=== PATIENT | female | born 1965 | race Caucasian/White ===

== ENCOUNTER 2025-05-25 08:05 | Emergency (ER) | payer BC, SELFPAY ==
--- OUTSIDE RECORDS SUMMARY | 2025-01-27 04:50 | XMS_ITS ---
Author Organization [facility] Address [address] [facility] [address] [place], [place] [phone] Care Team Providers Care Web Press Operator Name Role Phone HAYDEE RIOS Unavailable [phone] Hakan Provider Unknown Unavailable Unavai lable Allergies No Known Allergies REASON FOR VISIT *Tendonitis check Social History Social History Additional Details Category Social Info Options Details Migrated Social History Migrated Social History Smoking Status : Never smoked , Alcohol intake : , History of tobacco use : Vital Signs Height 64.00 in 01/27/2025 Weight 200 lbs 01/27/2025 BMI 34.33 kg/m2 01/27/2025 Height-cm 162.56 cm 01/27/2025 Weight-kg 90.72 kg 01/27/2025 Encounters Encounter Location Date Provider Diagnosis [facility] [place] [address] [facility] [address] [place], [place] [id number] 01/27/2025 HAYDEE RIOS Posterior tibial tendinitis of right lower extremity M76.821 ; Posterior tibial tendinitis of left lower extremity M76.822 ; Arthritis of foot, left M19.072 ; Other enthesopathy of left foot and ankle M77.52 ; Metatarsalgia of left foot M77.42 ; Pain in right foot M79.671 and Left foot pain M79.672 Assessments Encounter Date Diagnosis (ICD Code) Assessment Notes Treatment Notes Treatment Clinical Notes Section Notes 01/27/2025 Posterior tibial tendinitis of right lower extremity (ICD-10 - M76.821) 01/27/2025 Posterior tibial tendinitis of left lower extremity (ICD-10 - M76.822) 01/27/2025 Arthritis of foot, left (ICD-10 - M19.072) Discussed conservative care consisting of padding, wider shoes, anti-inflammator ies, and orthotics. Discussed surgical treatment options and answered all questions about the intra-operative and post-operative treatment course. 01/27/2025 Other enthesopathy of left foot and ankle (ICD-10 - M77.52) The patient was scanned for custom orthotics while held in subtalar joint neutral position. Xrays were obtained and reviewed. 01/27/2025 Metatarsalgia of left foot (ICD-10 - M77.42) 01/27/2025 Pain in right foot (ICD-10 - M79.671) 01/27/2025 Left foot pain (ICD-10 - M79.672) Patient was instructed to try an OTC topical pain reliever/anti-in flammatory such as Voltaren Gel, Aspercreme with Lidocaine, or Biofreeze etc over the affected areas. Spot test on hand or somewhere visible prior to starting to watch for possible rash/allergic reaction. Continue ibuprofen as needed. Patient refused steroid shot or Rx for pain today Plan Of Treatment Treatment Notes Assessment Notes Arthritis of foot, left Discussed conser vative care consisting of padding, wider shoes, anti-inflammatories, and orthotics. Discussed surgical treatment options and answered all questions about the intra-operative and post-operative treatment course. Other enthesopathy of left foot and ankl e The patient was scanned for custom orthotics while held in subtalar joint neutral position. Xrays were obtained and reviewed. Left foot pain Patient was instructed to try an OTC topical pain reliever/anti-inflammatory such as Voltaren Gel, Aspercreme with Lidocaine, or Biofreeze etc over the affected areas. Spot test on hand or somewhere visible prior to starting to watch for possible rash/allergic reaction. Continue ibuprofen as needed. 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 Patient complains of aching pain to bilateral feet. Duration of problem is 2 years. Patient states that she received x-rays from Dr. Alvarado in 2022 and no fracture was detected. Received injection, but did not improve pain. Patient states that pain started in the left foot and then it transitioned to both. , MA: KB Examination Category Sub-Category Detail Notes Category Not es X-Ray LEFT FOOT 3 views of foot: There is no evidence of fracture or dislocation. , Narrowing of the joint space and dorsal spurring noted at the first metatarsal phalangeal joint., X-rays show arthritic changes at the midfoot., X-rays reveal good correction of the deformities and position of the osteotomy left 2nd metatarsal. All hardware is in good position. RIGHT FOOT 3 views of foot: The re is no evidence of fracture or dislocation. , Narrowing of the joint space and dorsal spurring noted at the first metatarsal phalangeal joint. X-rays show arthritic changes at the midfoot Physical Examination Gen: The patient is awake, alert, well developed, well groomed and well nourished. They are in no apparent distress. Vasc: Dorsalis pedis and p osterior tibial pulses 2+ bilaterally. No edema noted. Capillary fill time < 3 seconds to all digits. Neuro: Grossly intact to li ght touch bilateral., Negative Tinel's sign bilateral Musc: Foot structure is hy permobile bilateral. Muscle strength is 5/5 to all joints bilaterally. Pain on palpation of subtalar joint, posterior left > right Pain along posterior tibial tendon left > right on palpation with mild nonpitting edema. Pain along metatarsal heads diffusely bilateral with callus sub 3rd mtpj bilateral flexible contractures of digits 2-5 bilateral with cicatrix over left 2nd MTPJ Derm: Skin is warm and dry , with no rashes, good skin turgor and normal hair distribution. Progress Notes * AMY MOB[birth year]DOB:[birth year] (59 yo F)Acc No.[id number]:01/27/2025 Patient: Adrian AWAD AMY Provider: Arabella ROIS :1965 A ge:59 Y S ex:Female Date:01/27/2025 Address:[address] [place] [address] Subjective: * Chief Complaints: * * Tendonitis check * HPI: H PI: New Complaint E stablished patient presents with a new complaint. Patient complains of aching pain to bilateral feet. Duration of problem is 2 years. Patient states that she received x-rays from Dr. Alvarado in 2022 and no fracture was detected. Received injection, but did not improve pain. Patient states that pain started in the left foot and then it transitioned to both. , MA: DOLORES. * ROS: G eneral / Constitutional: Patient denies c hills, fever. E ndocrine: Patient denies e xcessive thirst, frequent urination. ? C ardiovascular: Patient denies s hortness of breath, chest pain. S kin: Patient denies m ole changes. * Medical History: Denies Past Medical History No Medical History Documented Medical History Verified * Surgical History: Denies Past Surgical History. * Hospitalization/Major Diagno stic Procedure: Denies Past Hospitalization. Hospitalization Verified. * Family History: F ather: PRN - Father: :: Cancer,,known absent . M other: PRN - Mother: :: Arthritis,,known absent , :: Diabetes,,known absent . B rother: SIB - Brother: . S ister: SIB - Sister: .?Family History Verified.. * Social History: M igrated Social History: M igrated Social History: Smoking Status : Never smoked , Alcohol intake : , History of tobacco use :. Social History Verified. * Medications: N one * Allergies: N .K.D.A.yesAllergies Verified. Objective: * Vitals: S hoe Size: 8.5, Wt:200lbs, Wt-k.72 kg, Ht: 64.00 in, Ht-cm: 162.56 cm, BMI:34.33Index, Body Surface Area: 2.02. * Examination: P hysical Examination: Gen: T he patient is awake, alert, well developed, well groomed and well nourished. They are in no apparent distress. . Musc: F oot structure is hypermobile bilateral. Muscle strength is 5/5 to all joints bilaterally. Pain on palpation of subtalar joint, posterior l eft > right Pain along posterior tibial tendon left > right on palpation with mild nonpitting edema. Pain along metatarsal heads diffusely bilateral with callus sub 3rd mtpj bilateral flexible contractures of digits 2-5 bilateral with cicatrix over left 2nd MTPJ . Derm: S kin is warm and dry, with no rashes, good skin turgor and normal hair distribution. . Neuro: G rossly intact to light touch bilateral., Negative Tinel's sign bilateral. Vasc: D orsalis pedis and posterior tibial pulses 2+ bilaterally. No edema noted. Capillary fill time < 3 seconds to all digits. . X -Ray: LEFT FOOT 3 views of foot: There is no evidence of fracture or dislocation. , Narrowing of the joint space and dorsal spurring noted at the first metatarsal phalangeal joint., X-rays show arthritic changes at the midfoot., X-rays reveal good correction of the deformities and position of the osteotomy left 2nd metatarsal. All hardware is in good position..? RIGHT FOOT 3 views of foot: There is no evidence of fracture or dislocation. , N arrowing of the joint space and dorsal spurring noted at the first metatarsal phalangeal joint.?X-rays show arthritic changes at the midfoot. Assessment: * Assessment: 1. P osterior tibial tendinitis of right lower extremity - M76.821 (Primary) 2 . P osterior tibial tendinitis of left lower extremity - M76.822 3 . A rthritis of foot, left - M19.072 4 . O ther enthesopathy of left foot and ankle - M77.52 5 . M etatarsalgia of left foot - M77.42 6 . P ain in right foot - M79.671 7 . L eft foot pain - M79.672 Plan: * Treatment: 2. O ther enthesopathy of left foot and ankle Notes: The patient was scanned for custom orthotics while held in subtalar joint neutral position. Xrays were obtained and reviewed. 3. L eft foot pain Notes: Patient was instructed to try an OTC topical pain reliever/anti-inflammatory such as Voltaren Gel, Aspercreme with Lidocaine, or Biofreeze etc over the affected areas. Spot test on hand or somewhere visible prior to starting to watch for possible rash/allergic reaction. Continue ibuprofen as needed. 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 * Procedure Codes: 29899 X-RAY EXAM [place] FO[place]. Modifiers: [place] [address] X-RAY EXAM OF FOOT. Modifiers: LT L3020 FT INSRT REMV MOLD LNGTUDNL SUPP EA. Modifiers: RT, GA L3020 FT INSRT REMV MOLD LNGTUDNL SUPP EA. Modifiers: LT, GA * Electronic signature of JOSE ANGEL RIOS DPM on 05/25/2025 at 08:09 AM CFA Sign off status: Pending * Provider: Arabella RIOS Date: 0 01/27/2025 Generated for Teri Sterling/Blas on: 07/25/2024 08:09 AM CFA
--- OUTSIDE RECORDS SUMMARY | 2025-02-18 09:40 | XMS_ITS ---
Author Organization [facility] Address [address] [facility] [address] [place], [place] [id number] Care Team Providers Care Machine Puller And Laster Name Role Phone HAYDEE RIOS Unavailable [phone] Hakan Provider Unknown Unavailable Unavai lable Allergies No Known Allergies REASON FOR VISIT *Orthotic pick-up Social History Social History Additional Details Category Social Info Options Details Migrated Social History Migrated Social History Smoking Status : Never smoked , Alcohol intake : , History of tobacco use : Vital Signs Height 64.00 in 02/18/2025 Weight 200 lbs 02/18/2025 BMI 34.33 kg/m2 02/18/2025 Height-cm 162.56 cm 02/18/2025 Weight-kg 90.72 kg 02/18/2025 Encounters Encounter Location Date Provider Diagnosis [facility] [place] [address] [facility] [address] [place], [place] [phone] 02/18/2025 HAYDEE RIOS Plantar fasciitis M72.2 ; Posterior tibial tendinitis of right lower extremity M76.821 ; Posterior tibial tendinitis of left lower extremity M76.822 ; Left foot pain M79.672 and Pain in right foot M79.671 Assessments Encounter Date Diagnosis (ICD Code) Assessment Notes Treatment Notes Treatment Clinical Notes Section Notes 02/18/2025 Plantar fasciitis (ICD-10 - M72.2) 02/18/2025 Posterior tibial tendinitis of right lower extremity (ICD-10 - M76.821) 02/18/2025 Posterior tibial tendinitis of left lower extremity (ICD-10 - M76.822) 02/18/2025 Left foot pain (ICD-10 - M79.672) 02/18/2025 Pain in right foot (ICD-10 - M79.671) Plan Of Treatment No Information History and Physical Notes * HPI (History of Present Illness) Category Sub-Category Detail Notes Category Not es HPI Follow Up Visit 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 , MA: MIREILLE. * Medical History: No Medical History Documented Medical History Verified * Surgical History: No Surgical History documented. Surgical History verified. * Hospitalization/Major Diagno stic Procedure: No Hospitalization Documented. Hospitalization Verified. * Family History: F ather: [...] Allergies: N .K.D.A.yesAllergies Verified. Objective: * Vitals: W t:200lbs, Wt-k.72 kg, Ht: 64.00 in, Ht-cm: 162.56 cm, BMI:34.33Index, Body Surface Area: 2.02. Assessment: * Assessment: 1. P lantar fasciitis - M72.2 (Primary) 2 . P osterior tibial tendinitis of right lower extremity - M76.821 3 . P osterior tibial tendinitis of left lower extremity - M76.822 4 . L eft foot pain - M79.672 5 . P ain in right foot - M79.671 Plan: * Immunizations: Immunization record has been reviewed and updated. Billing Information: * Visit Code: 03251 Office Visit, Est Pt., Level 3. * Procedure Codes: * Electronic signature of JOSE ANGEL RIOS DPM on 05/25/2025 at 08:09 AM MANAGEMENT NURSE RN Sign off status: Pending * Provider: Arabella RIOS Date: 0 02/18/2025 Generated for Teri ortega/Cory/Austinsmitting on: 07/25/2024 08:09 AM MANAGEMENT NURSE RN
--- OUTSIDE RECORDS SUMMARY | 2025-04-15 10:10 | XMS_ITS ---
Author Organization [facility] Address [address] [place], [place] [address] Care Team Providers Care Skills Auditor Name Role Phone BLANCAHAYDEE Unavailable [phone] Hakan Provider Unknown Unavailable DAMIAN Gomez Unavailable [phone] Allergies No Known Allergies REASON FOR VISIT injection Social History Social History Additional Details Category Social Info Options Details Migrated Social History Migrated Social History Smoking Status : Never smoked , Alcohol intake : , History of tobacco use : Vital Signs Height 64.00 in 04/15/2025 Weight 200 lbs 04/15/2025 BMI 34.33 kg/m2 04/15/2025 Height-cm 162.56 cm 04/15/2025 Weight-kg 90.72 kg 04/15/2025 Encounters Encounter Location Date Provider Diagnosis [facility] [address] [place], [place] [phone] 04/15/2025 DAMIAN ADORNO 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 ; Primary osteoarthritis, right ankle and foot M19.071 and Pain in right foot M79.671 Assessments Encounter Date Diagnosis (ICD Code) Assessment Notes Treatment Notes Treatment Clinical Notes Section Notes 04/15/2025 Sinus tarsi syndrome of right ankle (ICD-10 - M25.571) 04/15/2025 Primary osteoarthritis , right ankle and foot (ICD-10 - M19.071) 04/15/2025 Pain in right foot (ICD-10 - M79.671) 04/15/2025 Other Following skin prep, a total of 3 ccs of a 1-1-1 mix of 0.5% marcaine plain, Kenalog, and dexamethasone sodium phosphate was injected into the patients right sinus tarsi A trilok ankle brace was dispensed for the pateint's right and the patient was instructed on it's use. Plan Of Treatment Treatment Notes Assessment Notes Other Following skin prep, a total of 3 ccs of a 1-1-1 mix of 0.5% marcaine plain, Kenalog, and dexamethasone sodium phosphate was injected into the patients right sinus tarsi A trilok ankle brace was dispensed for the pateint's right and the patient was instructed on it's use. History and Physical Notes * HPI (History of Present Illness) Category Sub-Category Detail Notes Category Not es HPI Follow Up Visit Patient presents for follow-up visit for injections in both feet. Patient states the last injections didn't work. Patient states she has had orthotics for two months, and they are not helping. Patient states their problem is, unchanged., MA: da Examination Category Sub-Category Detail Notes Category Not es Constitutional Constitutional The patient is a wake, alert, well developed, well groomed and well nourished. Dermatologic Skin findings: Skin is warm, dr y, supple with no breaks in the skin. Nail pathology: Nails 1-5 bilateral are normal in appearance and thickness. No discoloration. Ulcer: There is no evidence of ulceration noted at this time Hyperkeratotic Skin Lesion There is no e vidence of hyperkeratosis Musculoskeletal Muscle Strength Muscle strength is 5/5 in regards to dorsiflexion, plantarflexion, inversion, and eversion in bilateral lower extremities. Pain on palpation lateral portal of th e right sinus tarsi. Foot Structure The foot structure i s noted to be normal bilaterally Gait There is normal gait noted Neurologic Muscle power: 5/5 bilaterally Gross sensation Gross sensation is i ntact to light touch. Vascular Dorsalis pedis pulse: 2/4 bilateral Posterior tibial pulse: 2/4 bilaterally Capillary refill: less than 3 seconds bilaterally Temperature gradient: within normal limi ts Progress Notes * AMY MOB[birth year]DOB:[birth year] (59 yo F)Acc No.[id number]:04/15/2025 Patient: MARC SALASRICIA Provider: Rai Adorno DPM :1965 A ge:59 Y S ex:Female Date:04/15/2025 Address:[address] [place] [address] Subjective: * Chief Complaints: * I njection * HPI: H PI: Follow Up Visit P caden presents for follow-up visit for injections in both feet. Patient states the last injections didn't work. Patient states she has had orthotics for two months, and they are not helping. Patient states their problem is, unchanged., MA: eileen. * Medical History: No Medical History Documented [...] : , History of tobacco use :. S ocial History Verified. * Medications: N one * Allergies: N .K.D.A.yesAllergies Verified. Objective: * Vitals: S hoe Size: 8.5, Wt:200lbs, Wt-k.72 kg, Ht: 64.00 in, Ht-cm: 162.56 cm, BMI:34.33Index, Body Surface Area: 2.02. * Examination: C onstitutional: Constitutional T he patient is awake, alert, well developed, well groomed and well nourished. . D ermatologic: Skin findings: S kin is warm, dry, supple with no breaks in the skin. . Nail pathology: N ails 1-5 bilateral are normal in appearance and thickness. No discoloration. . Ulcer: T here is no evidence of ulceration noted at this time . Hyperkeratotic Skin Lesion T here is no evidence of hyperkeratosis . M usculoskeletal: Muscle Strength M uscle strength is 5/5 in regards to dorsiflexion, plantarflexion, inversion, and eversion in bilateral lower extremities. . Foot Structure T he foot structure is noted to be normal bilaterally . Pain on palpation l ateral portal of the right sinus tarsi. . Gait T here is normal gait noted . N eurologic: Muscle power: 5 /5 bilaterally . Gross sensation G ross sensation is intact to light touch. . V ascular: Dorsalis pedis pulse: 2 /4 bilateral . Posterior tibial pulse: 2 /4 bilaterally . Capillary refill: l ess than 3 seconds bilaterally . Temperature gradient: w ithin normal limits . ? Assessment: * Assessment: 1. S inus tarsi syndrome of right ankle - M25.571 (Primary) 2 . P rimary osteoarthritis, right ankle and foot - M19.071 3 . P ain in right foot - M79.671? Plan: * Treatment: * Procedure Codes: 2 0600 DRAIN/INJECT, JOINT/BURSA, Modifiers: RT L1902 AFO SHAHRIAR GAUNTLT PREFAB W/FIT&ADJ, Modifiers: RT , GA Billing Information: * Visit Code: 54034 Office Visit, Est Pt., Level 3. Modifiers: 25 * Procedure Codes: 66584 DRAIN/INJECT, JOINT/BURSA. Modifiers: RT L1902 AFO ANK GAUNTLT PREFAB W/FIT&ADJ. Modifiers: RT, GA * Electronic signature of DAMIAN ADORNO DPM on 05/25/2025 at 08:09 AM SCROLL SAW OPERATOR Sign off status: Pending * Provider: Rai Adorno DPM Date: 0 04/15/2025 Generated for Teri ortega/Cory/eTransmitting on: 07/25/2024 08:09 AM SCROLL SAW OPERATOR
--- OUTSIDE RECORDS SUMMARY | 2025-05-06 09:40 | XMS_ITS ---
Author Organization [facility] Address [address] [place], [place] [address] Care Team Providers Care Oncology Pharmacist Name Role Phone BLANCAHAYDEE Unavailable [phone] Harvinder Mcclendon Unknown Unavailable DAMIAN Gomez Unavailable [phone] REASON FOR VISIT *Trilok follow-up Encounters Encounter Location Date Provider Diagnosis [facility] [address] [place], [place] [phone] 05/06/2025 DAMIAN ADORNO Plan Of Treatment No Information Progress Notes * ITZ AMYDOB:[birth year] (59 yo F)Acc No.[id number]:05/06/2025 Patient: AMY SALAS Provider: Rai Adorno DPM :1965 A ge:59 Y S ex:Female Date:05/06/2025 Address:[address] [place], [place] [phone] Subjective: * Chief Complaints: * * Trilok follow-up Billing Information: * Procedure Codes: * Electronic signature of DAMIAN ADORNO DPM on 05/25/2025 at 08:08 AM BIOMEDICAL EQUIPMENT TECHNICIAN Sign off status: Pending * Provider: Rai Adorno DPM Date: Generated for Nataliei ng/Fahoangg/eTransmitting on: 07/25/2024 08:08 AM BIOMEDICAL EQUIPMENT TECHNICIAN
--- OUTSIDE RECORDS SUMMARY | 2025-05-25 08:09 | XMS_ITS | Patient Health Record ---
Author Organization [facility] Address [address] [place], [place] [id number] Care Team Providers Care Vehicle Return Associate Name Role Phone HAYDEE RIOS Unavailable [phone] Harvinder Mcclendon Unknown Unavailable DAMIAN Gomez Unavailable [phone] Allergies No Known Allergies Reason For Referral No Information Social History Social History Additional Details Category Social Info Options Details Migrated Social History Migrated Social History Smoking Status : Never smoked , Alcohol intake : , History of tobacco use : Vital Signs Height-cm 162.56 cm 04/15/2025 Weight-kg 90.72 kg 04/15/2025 Height 64.00 in 04/15/2025 Weight 200 lbs 04/15/2025 BMI 34.33 kg/m2 04/15/2025 Encounters Encounter Location Date Provider Diagnosis [facility] [address] [place] [id number] 01/27/2025 HAYDEE RIOS Posterior tibial tendinitis of right lower extremity M76.821 ; Posterior tibial tendinitis of left lower extremity M76.822 ; Arthritis of foot, left M19.072 ; Other enthesopathy of left foot and ankle M77.52 ; Metatarsalgia of left foot M77.42 ; Pain in right foot M79.671 and Left foot pain M79.672 [facility] [place] [id number] [facility] [address] [place], [place] [id number] 02/18/2025 HAYDEE RIOS Plantar fasciitis M72.2 ; Posterior tibial tendinitis of right lower extremity M76.821 ; Posterior tibial tendinitis of left lower extremity M76.822 ; Left foot pain M79.672 and Pain in right foot M79.671 [facility] [address] [place], [place] [id number] 04/15/2025 DAMIAN LOPEZ 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 ; Primary osteoarthritis, right ankle and foot M19.071 and Pain in right foot M79.671 Assessments Encounter Date Diagnosis (ICD Code) Assessment Notes Treatment Notes Treatment Clinical Notes Section Notes 01/27/2025 Posterior tibial tendinitis of right lower extremity (ICD-10 - M76.821) 01/27/2025 Posterior tibial tendinitis of left lower extremity (ICD-10 - M76.822) 02/18/2025 Plantar fasciitis (ICD-10 - M72.2) 02/18/2025 Posterior tibial tendinitis of right lower extremity (ICD-10 - M76.821) 04/15/2025 Primary osteoarthritis, right ankle and foot (ICD-10 - M19.071) 04/15/2025 Sinus tarsi syndrome of right ankle (ICD-10 - M25.571) 01/27/2025 Arthritis of foot, left (ICD-10 - M19.072) Discussed conservative care consisting of padding, wider shoes, anti-inflammatori es, and orthotics. Discussed surgical treatment options and answered all questions about the intra-operative and post-operative treatment course. 04/15/2025 Pain in right foot (ICD-10 - M79.671) 02/18/2025 Posterior tibial tendinitis of left lower extremity (ICD-10 - M76.822) 02/18/2025 Left foot pain (ICD-10 - M79.672) 01/27/2025 Other enthesopathy of left foot and ankle (ICD-10 - M77.52) The patient was scanned for custom orthotics while held in subtalar joint neutral position. Xrays were obtained and reviewed. 01/27/2025 Metatarsalgia of left foot (ICD-10 - M77.42) 02/18/2025 Pain in right foot (ICD-10 - M79.671) 01/27/2025 Pain in right foot (ICD-10 - M79.671) 01/27/2025 Left foot pain (ICD-10 - M79.672) Patient was instructed to try an OTC topical pain reliever/anti-inf lammatory such as Voltaren Gel, Aspercreme with Lidocaine, or Biofreeze etc over the affected areas. Spot test on hand or somewhere visible prior to starting to watch for possible rash/allergic reaction. Continue ibuprofen as needed. Patient refused steroid shot or Rx for pain today 04/15/2025 Other Following skin prep, a total of 3 ccs of a 1-1-1 mix of 0.5% marcaine plain, Kenalog, and dexamethasone sodium phosphate was injected into the patients right sinus tarsi A trilok ankle brace was dispensed for the pateint's right and the patient was instructed on it's use. Plan Of Treatment No Information Insurance Providers Payer Name Payer Address Payer Phone Subscriber Number Group Number Insured Name Patient Relationship to Insured Coverage Start Date Coverage End Date [facility] ([facility]) ATTN CLAIMS [address] [place] [address] [id number] MOBLEY Self - patient is the insured
--- OUTSIDE RECORDS SUMMARY | 2025-05-25 08:09 | XMS_ITS | Clinical Summary ---
Author Organization [facility] Address [facility] [place] [address] Care Team Providers Care Chronic Disease Manager Name Role Phone Maycol Durham MD Primary Care Provider [phone] Allergies No known active allergies Medications No known medications Active Problems No known active problems Family History Medical History Relation Comments Diabetes Mother Relation Status Comments Mother Social History Tobacco Use Types Packs/Day Years Used Date Smoking Tobacco: Never Smokeless Tobacco: Never Tobacco Cessation:Counseling Given: Yes Comments No Sex and Gender Information Value Date Recorded Sex Assigned at Not on file Legal Sex Female 6:18 PM CDT Gender Identity Not on file Sexual Orientation Not on file Last Filed Vital Signs Vital Sign Reading Time Taken Comments Blood Pressure 134/92 04/22/2021 8:57 AM CDT Pulse 74 04/22/2021 8:57 AM CDT Temperature 36.5 C (97.7 F) 04/22/2021 8:57 AM CDT Respiratory Rate 20 04/22/2021 8:57 AM CDT Oxygen Saturation 96% 04/22/2021 8:57 AM CDT Inhaled Oxygen Concentration - - Weight 93 kg (205 lb) 05/20/2021 11:16 AM CDT Height 162.6 cm (5' 4) 05/20/2021 11:16 AM CDT Body Mass Index 35.19 05/20/2021 11:16 AM CDT Plan of Treatment Health Maintenance Due Date Last Done Comments Cervical Cancer Screening Pa p Smear (Age 30 to 64) Every 3 Years 1966 Colorectal Cancer Screening Colonoscopy (10 Years) 1966 Annual Physical 1969 Hepatitis C 1984 DTaP, Tdap and Td Vaccines ( 1 - Tdap) 1985 Hepatitis B Vaccines (1 of 3 - 19+ 3-dose series) 1985 Cervical Cancer Screening Pa p with HPV Testing (Age 30 to 64) Every 5 Years 1996 Cervical Cancer Screening wi th HPV 1996 Mammogram Screening 2006 Pneumococcal Vaccine: 50+ Years (1 of 1 - PCV) 2016 Zoster Vaccines (1 of 2) 2016 PHQ-2 (Physician [place]) 07/24/2024 COVID-19 Vaccine (1 - 2024-2 6 season) 2025 Influenza Adult (#1) 2025 04/23/2019, 04/23/2018, 04/23/2013 Hepatitis A Vaccines Aged Out No long er eligible based on patient's age to complete this topic Meningococcal B Vaccine Aged Out No l onger eligible based on patient's age to complete this topic Meningococcal Vaccine Aged Out No emily gavino eligible based on patient's age to complete this topic RSV Immunizations Under 20 Months Aged Out No longer eligible b ased on patient's age to complete this topic Insurance Care Teams Chronic Disease Manager Relationship Specialty Start Date End Date Maycol Durham MD [address] [place], [place] [id number] PCP - General FAMILY PRACTICE 04/22/21
--- OUTSIDE RECORDS SUMMARY | 2025-05-25 08:09 | XMS_ITS | Clinical Summary ---
Author Organization [facility] Address [address] [place] [address] Care Team Providers Care Acting Section Chief Name Role Phone Fransisco Dixon MD Unavailable [phone] Allergies No known active allergies Medications black cohosh 540 mg capsule 540 mg Activ e omega 2-jlg-vjt-fish oil (FISH OIL) 1,000 mg (120 mg-180 mg) capsule 1,000 mg daily Activ e Dunning's wort 300 mg capsule 300 mg daily Ac tive glucosamine-cho ndroitin (GLUCOSAMINE-CH ONDROITIN COMPLX) 500-400 mg capsule daily Active ascorbic acid, vitamin C, 500 mg capsule 500 mg Active cholecalciferol (VITAMIN D-3) 2,000 unit tablet 2,000 Units daily Active multivitamin-mi k-pcan-EP-vit K (ADULTS MULTIVITAMIN) 18 mg iron-400 mcg-25 mcg tablet Rx: Multivitamin Adults - Tablet Active vitamin b complex (VITAMINS B COMPLEX) tablet Rx: Vitamin B Complex - Tablet Active tacrolimus (PROTOPIC) 0.1 % ointment APPLY TO AFFECTED AREA AROUND OU BID 0 Active venlafaxine XR (EFFEXOR-XR) 75 mg 24 hr capsule Take 1 capsule (75 mg total) by mouth daily 90 capsule 1 1 Active Additional Information Patient not taking.Reported on 04/16/[address] (VOLTAREN) 75 mg EC tabletIndicatio ns:DDD (degenerative disc disease), cervical Take 1 tablet (75 mg total) by mouth 2 (two) times a day as needed for pain 180 tablet 1 Active Additional Information Patient not taking.Reported on 04/16/2021 Active Problems Problem Noted Date Diagnosed Date Cervical radiculopathy 08/06/2020 Well adult exam 08/06/2020 DDD (degenerative disc disease), cervical 2019 Assessment & Plan (06/09/2020 11:22 AM BUSINESS ASSISTANT): Will check MRI Will place referral to ortho/Livia Continue supportive care Further guidance once we have the results Call for questions or concerns Assessment & Plan (01/28/2020 4:12 PM CDT): With pain radiating down her arms Will refer to ortho-but check to see if her orthopedist covers this Will check xray Consider pain management Update me after the visit Continue naproxen as needed Call for questions or concerns Primary osteoarthritis of both knees 10/02/2019 Assessment & Plan (10/02/2019 1:41 PM CDT): We discussed the risks, benefits and alternatives of treatment options for osteoarthritis of the knee. From least invasive to most invasive: The only thing to slow the progression of osteoarthritis is weight loss. For every pound lost 4 to 6 pounds of stress is relieved from the knee. Formal physical therapy to help with flexion, extension, mobility and strength. Unloading braces to unload the affected side. The possibility of TENs unit to control pain and swelling. Nonsteroidal anti-inflammatories with the potential of cardiac and GI upset. Steroid and Visco supplement injection. And eventual total knee arthroplasty. We discussed the risks, benefits and alternatives. Today the patient has elected to proceed with knee injections. I removed 6 cc's from her right knee. Patient will follow up after her MRI. GERD (gastroesophageal reflux disease) 9 Assessment & Plan (06/12/2019 3:17 PM BUSINESS ASSISTANT): Increase prilosec to twice a day Actions and side effects of medications are discussed Watch for worsening symptoms- ie diarrhea, emesis, nausea, blood per rectum, hematemesis, fever, arthralgias, rash, unexplained weight loss etc... If those happen, please contact the office Healthy changes to improve GERD: Avoid spicy, fried, greasy food Keep hydrated with clear liquids Elevate head of bed 2-3 inches Avoid or cut down on caffeines, chocolates and ETOH No late meals or heavy meals after 7pm Regular daily exercise No tight fitting clothing Weight loss if indicated will help improve symptoms Discussed increased risk of cdiff, dementia, pneumonia, bone demineralization leading to increase in fractures, CKD with buttermaker continuous churn use of PPI with the patient Given her symptoms, will continue it for now Class 2 obesity due to exces s calories without serious comorbidity with body mass index (BMI) of 37.0 to 37.9 in adult 06/12/2019 Assessment & Plan (10/02/2019 1:39 PM CDT): We discussed the adverse effects of extra weight on osteoarthritis. The only thing proven to slow the progression of osteoarthritis as weight loss. Every 1 lb lost, relieves 4-6 lb of stress across the knee. Continue weight loss through diet and exercise. Consider low carbohydrate diet. Assessment & Plan (06/12/2019 3:21 PM BUSINESS ASSISTANT): BMI Follow-up includes: nutrition counseling. BMR calculated at:1658 calories/day To lose weight, daily calorie goal to lose a pound a week would be 1358 Start tracking using an rod like [employer] There are many different diet options- I recommend moderation, low carb Try aim for whole foods-fruits, veggies, lean meats/protein sources Exercise is probably only 5% of the equation, but has many other benefits Aim for 30 minutes most day of the week for cardiac health Consider support groups like Weight Watchers or TOPS Follow up in 1 month for blood pressure/weight recheck Call for questions or concerns Left foot pain 01/28/2019 Assessment & Plan (08/08/2020 1:17 PM BUSINESS ASSISTANT): Related to a ganglion cyst EKG reviewed- low risk for surgery Forms completed Update me after the procedure Call for questions or concerns Assessment & Plan (01/28/2019 4:10 PM CDT): History of a stress fracture Will check an xray Set up a follow up with her real estate inspector Call for questions or concerns Epidermal inclusion cyst 01/28/2019 Assessment & Plan (01/28/2019 4:14 PM CDT): With inflammation on back- would hold off on excision for today Would set up an appointment to have it removed in the future Call for questions or concerns Left hand pain 11/07/2018 Arthritis of carpometacarpal (CMC) joint of left thumb 11/07/2018 Injury of left thumb 09/26/2018 Adjustment disorder with mixed anxiety and depre ssed mood 08/10/2018 Assessment & Plan (06/09/2020 1:18 PM BUSINESS ASSISTANT): Continue current regimen Call for questions or concerns Assessment & Plan (01/28/2020 5:18 PM CDT): Will increase Effexor Continue healthy changes to improve mood Call if symptoms change or worsen Call for questions or concerns Hot flashes due to menopause 08/10/2018 Assessment & Plan (06/09/2020 1:18 PM BUSINESS ASSISTANT): Continue current regimen Call for questions or concerns Assessment & Plan (01/28/2020 5:19 PM CDT): Will increase medication to see if it helps Call for questions or concerns Obstructive sleep apnea syndrome 10/30/2017 Menorrhagia 12/05/2011 Numbness 02/09/2011 Resolved Problems Problem Noted Date Diagnosed Date Resolved Date Metrorrhagia 12/05/2011 08/06/2020 Immunizations Immunization Administration Dates Next Due Influenza, Trivalent, IM (MDV) 04/23/2013 Influenza, Unspecified 04/23/2019,04/23/2018 Surgical History Surgery Date Site/Laterality Comments MO APPENDECTOMY Appendectomy - (Added by TW Conv) NEUROPLASTY / TRANSPOSITION MEDIAN NERVE AT CARPAL TUNNEL Neuroplasty Decompression Median Nerve At Carpal Tunnel - (Added by TW Conv) MO DILATION & CURETTAGE DX&/THER NONOBSTETRIC Dilation And Curettage - 1990 at time of [facility] Salpingectomy for ectopic (Added by TW Conv) MO HYSTEROSCOPY BX ENDOMETRIUM&/POLYPC W/WO D&C Hysteroscopy - Dx in the office a few years ago for infertility workup (Added by TW Conv) MO INDUCED DILATION AND CURETTAGE Surgically Induced - By Dilation And Curettage - (Added by TW Conv) TUBAL LIGATION ROTATOR CUFF REPAIR 07/24/2013 - 07/23/2014 KNEE ARTHROSCOPY Medical History Medical History Date Comments Personal history of other di seases of the nervous system and sense organs History of carpal tunn el syndrome - (Added by TW Conv) Sleep apnea Postmenopausal GERD (gastroesophageal reflux disease) Hiatal hernia Degeneration of intervertebr al disc of cervical region with osteophyte of cervical vertebra Foraminal stenosis of cervical region DDD (degenerative disc disease), cervical Family History Medical History Relation Name Comments Brain cancer Father Arthritis Mother Diabetes Mother Relation Name Status Comments Father Mother Social History Tobacco Use Types Packs/Day Years Used Date Smoking Tobacco: Former Cigarettes 0 01/28/1990 - 01/28/2005 Smokeless Tobacco: Never Alcohol Use Standard Drinks/Week Comments Yes 12 (1 standard drink = 0.6 oz pu re alcohol) AUDIT-C Answer Date Recorded Frequency of Alcohol Consumption 2-3 times a wee k 01/28/2019 Average Number of Drinks Not on file 019 Frequency of Binge Drinking Not on file 02/2019 PHQ-2 Answer Date Recorded PHQ-2 Total Score (If total score is 3 or more points, staff should administer the PHQ-9) 0 08/06/2020 Comments No Sex and Gender Information Value Date Recorded Sex Assigned at Not on file Legal Sex Female 7:09 PM BUSINESS ASSISTANT Gender Identity Not on file Sexual Orientation Not on file 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 Not on file Not on file Last Filed Vital Signs Vital Sign Reading Time Taken Comments Blood Pressure 150/90 04/16/2021 9:22 AM CDT Pulse 78 04/16/2021 9:22 AM CDT Temperature 37 C (98.6 F) 04/16/2021 9:22 AM CDT Respiratory Rate 16 04/16/2021 9:22 AM CDT Oxygen Saturation 98% 04/16/2021 9:22 AM CDT Inhaled Oxygen Concentration - - Weight 91.6 kg (202 lb) 04/16/2021 9:22 AM CDT Height 162.6 cm (5' 4) 04/16/2021 9:22 AM CDT Body Mass Index 34.67 04/16/2021 9:22 AM CDT Plan of Treatment Not on file Insurance [address] [place], [place] [id number] [facility] CLAIMS Care Teams Acting Section Chief Relationship Specialty Start Date End Date Fransisco Dixon MD [address] [place] [address] Referring Physician Gastroenterology 01/30/20
[2025-05-25 08:15] VITALS: BP 125/83; PULSE 90; RESP 18; TEMP 36.7; O2SAT 100
--- NOTE | 2025-05-25 08:31 | ED.GENADULT ---
HPI - General Adult General Chief complaint: Upper Respiratory Infection Stated complaint: Upper Respiratory Infection History of Present Illness HPI narrative: Elizabeth Salazar S a 59 year female who presents with having worsening congestion, nasal congestion, cough no sinus tenderness going to her teeth this started about 5 days ago. She states that she is feeling worse today than what she did at the beginning. She is not aware of having any fever denies shortness of breath or chest pain. Related Data Allergies Allergy/AdvReac Type Severity Reaction Status Date / Time No Known Allergies Allergy Verified 05/25/25 08:22 Review of Systems Review of Systems: All systems reviewed & are unremarkable except as noted in HPI and below Exam Narrative: GENERAL: Well-appearing, well-nourished, and in no acute distress. HEAD: Normocephalic, atraumatic. EYES: PERRLA and EOMI. ENT: Nares clear,. Mucous membranes moist. Oropharynx without tonsillar hypertrophy exudate or other lesions. Bilateral TMs pearly morales nonbulging, mild bilateral effusions + maxilary tenderness NECK: Supple. No adenopathy or masses. No carotid bruits or JVD CHEST: Clear to auscultation. No respiratory distress. No wheezes rales or rhonchi HEART: Regular rate and rhythm. No murmur heard. Normal peripheral pulses. ABDOMEN: Soft, nontender, nondistended, normal active bowel sounds. EXTREMITIES: Normal range of motion. No edema. SKIN: Warm, dry, no rash. NEURO: No focal deficits. Alert and oriented x3. PSYCH: Normal mood and affect. Course Course Level of Care: Express Care Visit Vital Signs Vital signs: Vital Signs Temperature 36.7 C 05/25/25 08:15 Pulse Rate 90 05/25/25 08:15 Respiratory Rate 18 05/25/25 08:15 Blood Pressure 125/83 05/25/25 08:15 Pulse Oximetry 100 05/25/25 08:15 Oxygen Delivery Room Air 05/25/25 08:15 Temperature 36.7 C 05/25/25 08:15 Pulse Rate 90 05/25/25 08:15 Respiratory Rate 18 05/25/25 08:15 Blood Pressure 125/83 05/25/25 08:15 Pulse Oximetry 100 05/25/25 08:15 Oxygen Delivery Room Air 05/25/25 08:15 Medical Decision Making MDM Narrative Medical decision making narrative: This 59 year old patient presents with symptoms most suggestive of acute sinusitis, Lungs are clear bilaterally without any respiratory distress or accessory muscle use. Encouraged Patient to continue the Mucinex, start zyrtec daily and will send her Augmentin BID discharged home in stable condition with expectant management. Return precautions were provided. Procedures: Pulse oximetry interpretation - not hypoxic. Review of medical records. DISPOSITION: Discharged home in stable condition. IMPRESSION: Acute Sinusitis Medical Records Medical records reviewed: Yes I reviewed the external patient's medical records. Vital Signs Vital Signs: Vital Signs Temperature 36.7 C 05/25/25 08:15 Pulse Rate 90 05/25/25 08:15 Respiratory Rate 18 05/25/25 08:15 Blood Pressure 125/83 05/25/25 08:15 Pulse Oximetry 100 05/25/25 08:15 Oxygen Delivery Room Air 05/25/25 08:15 Temperature 36.7 C 05/25/25 08:15 Pulse Rate 90 05/25/25 08:15 Respiratory Rate 18 05/25/25 08:15 Blood Pressure 125/83 05/25/25 08:15 Pulse Oximetry 100 05/25/25 08:15 Oxygen Delivery Room Air 05/25/25 08:15 Vitals reviewed Discharge Plan Discharge Clinical Impression: Sinusitis Qualifiers: Sinusitis location: maxillary Chronicity: acute Recurrence: not specified as recurrent Qualified Code(s): J01.00 - Acute maxillary sinusitis, unspecified Patient Disposition: Home Condition: Stable Instructions: Antibiotic Form, Sinusitis (ED) Additional Instructions: Continue to push hydration, drinking plenty of fluids Start the Augmentin twice daily for 10 days Continue the Mucinex twice daily Start Zyrtec daily for your congestion symptoms as well Get plenty of rest Please establish care with a PCP for follow up If you should develop any new or worsening symptoms such as chest pain, shortness of breath, difficulty breathing or vomiting then proceed to the ER Patient Language: Cameroonian Prescriptions: New amoxicillin-pot clavulanate 875-125 mg tablet 1 tablet PO Q12H Qty: 20 0RF Follow-up/Referrals: PHYSICIAN,EARLY CHILDHOOD WORKER [Primary Care Provider, Internal Medicine] Time of Disposition: 08:37
== END 2025-05-25 08:38 | disposition home or self-care (01) ==
PROVIDERS: Emergency Provider Nurse Practitioner Family
DX: J01.00 Acute maxillary sinusitis, unspecified (principal)
CPT/HCPCS: 99203; G0463